=== PATIENT | female | born 1950 ===

== ENCOUNTER 2019-01-25 08:15 | Inpatient (IN) | payer OTHER ==
[2019-01-25] VITALS (10 sets, daily range): BP systolic 116–151; BP diastolic 55–73
[~2019-01-25] VITALS: Ht 158.8 cm; Wt 90.3 kg
--- NOTE | 2019-01-25 07:26 | Pre-Procedure Note/Attestation ---
Pre-Procedure Note/Attestation Complete Prior to Procedure Planned Procedure: bilateral Procedure Narrative: Posterior lumbar decompression bilaterally L4-5 and right L5-S1 and, interspinous fusion with titanium graft, posterolateral arthrodesis at L4-5, use of allograft, autograft and iliac crest bone marrow aspirate. Attestation I attest that I discussed the nature of the procedure; its benefits; risks and complications; and alternatives (and the risks and benefits of such alternatives ), prior to the procedure, with the patient (or the patient's legal route sales representative). I attest that, if there was a reasonable possibility of needing a blood transfusion, the patient (or the patient's legal route sales representative) was given the [place] Department of Health Services standardized written summary, pursuant to the Renny Ousmane Blood Safety Act ([place] Health and Safety Code # 1645, as amended). I attest that I re-evaluated the patient just prior to the surgery and that there has been no change in the patient's H&P, except as documented below: Santino Mcdonnell MD Jan 25, 2019 07:26
[~2019-01-25 08:15] MED LIST: CARVEDILOL6.25 MG ORAL; HYDROCODON-ACE1 EA15 ORAL; IBUPROFEN600 MG ORAL; Pantoprazole Inj IVP ONE; TYLENOL ARTHRITIS PO; Vancomycin 1gm/D5W 275ml IVPB ONE
[2019-01-25] MEDS ORDERED: Midazolam 2mg/2ml Inj ONE (11:15)
[2019-01-25] MEDS ORDERED: fentaNYL 100 mcg/2 mL IV ONE (11:15)
[2019-01-25] MEDS ORDERED: Pantoprazole Inj ONE (11:25)
[2019-01-25] MEDS ORDERED: Thrombin 5000 units TOPIC ONE (12:33)
[2019-01-25] MEDS ORDERED: Thrombin 5000 units spray kit TOPIC ONE (12:33)
[2019-01-25] MEDS ORDERED: Heparin 1000 units/ml 1ml Vial ONE (12:33)
[2019-01-25] MEDS ORDERED: Bacitracin 50000 Units Vial ONE (12:34)
[2019-01-25] MEDS ORDERED: Bupivacaine w/Epi 0.5% 30ml Vial INJ ONE (12:34)
[2019-01-25] MEDS ORDERED: Gelfoam Absorbable 1gm powder pkt TOPIC ONE (12:34)
[2019-01-25] MEDS ORDERED: Gelfoam Size TOPIC ONE (12:34)
[2019-01-25] MEDS ORDERED: NS Irrig 1000ml ONE (13:00)
[2019-01-25] MEDS ORDERED: Sterile Water Irrig 1000ml IRRIG ONE (13:00)
[2019-01-25] MEDS ORDERED: LR 1000ml ONE (13:00)
[2019-01-25] MEDS ORDERED: Neostigmine 1mg/ml 10ml Inj ONE (13:00)
[2019-01-25] MEDS ORDERED: Glycopyrrolate 0.2mg/ml 1ml Vial ONE (13:51)
[2019-01-25] MEDS ORDERED: Ketorolac 30mg Inj ONE (13:51)
[2019-01-25] MEDS ORDERED: Sodium Chloride 10ml vial INJ ONE ×2 (13:51→14:07)
[2019-01-25] MEDS ORDERED: Morphine Sulfate 10mg/ml Inj ONE (13:51)
[2019-01-25] MEDS ORDERED: ePHEDrine 50mg/ml Inj ONE (14:07)
[2019-01-25] MEDS ORDERED: Zemuron 50mg/5ml Inj IV ONE (14:12)
--- NOTE | 2019-01-25 14:16 | Anethesia Preoperative Eval ---
Anesthesia Pre-op PMH/ROS General Date of Evaluation: Jan 25, 2019 Time of Evaluation: 12:50 Anesthesiologist: Clyde ASA Score: ASA 2 Mallampati Score Class I : Soft palate, uvula, fauces, pillars visible Class II: Soft palate, uvula, fauces visible Class III: Soft palate, base of uvula visible Class IV: Only hard plate visible Mallampati Classification: Class II Surgeon: Kecia Diagnosis: Lumbar radiculopathy Surgical Procedure: L5-S1 laminotomy with decompression and interbody fusion Anesthesia History: none Family History: no anesthesia problems Allergies: Coded Allergies: No Known Allergies (Unverified , 01/23/19) Medications: see eMAR Patient NPO?: Yes NPO Date: Jan 24, 2019 NPO Time: 2358 Past Medical History Cardiovascular: Denies: HTN, CAD, [place], valve dz, arrhythmia, other Pulmonary: Reports: ASHLEY; Denies: asthma, COPD, other Gastrointestinal/Genitourinary: Reports: GERD; Denies: CRI, ESRD, other Neurologic/Psychiatric: Reports: depression/anxiety, other - chronic pain; Denies: dementia, CVA, TIA Endocrine: Reports: other - hyperCAmia; Denies: DM, hypothyroidism, steroids HEENT: Denies: cataract (L), cataract (R), glaucoma, KLAMATH (L), KLAMATH (R), other Hematology/Immune: Denies: anemia, DVT, bleeding disorder, other Musculoskeletal/Integumentary: Denies: OA, RA, DJD, DDD, edema, other Other: obesity PMH Narrative: as above PSxH Narrative: partial thyroidectomy, breasts reduction, cosmetics Anesthesia Pre-op Phys. Exam Physician Exam Last Vital Signs Date Time Temp Pulse Resp B/P (MAP) Pulse Ox O2 Delivery O2 Flow Rate FiO2 01/25/19 10:11 Room Air 01/25/19 10:07 97.8 52 18 151/67 (95) 97 Constitutional: NAD Neurologic: CN 2-12 intact Cardiovascular: RRR, no M/R/G Respiratory: CTA Gastrointestinal: other - obesity Airway Exam Mallampati Score: Class II MO: limited Neck: short ROM: limited Teeth: intact Dentures: no upper, no lower Anesthesia Pre-op A/P Labs see chart Studies Pre-op Studies: EKG - NSR, CXR - WNL Risk Assessment & Plan Assessment: ASA 2 Plan: GA with ETT prone position neuromonitoring Status Change Before Surgery: No Pre-Antibiotics Drug: Vancomycin 1gr. Given Within 1 Hr of Incision: Yes Time Given: 13:28 Baldemar Tang MD Jan 25, 2019 14:16
[2019-01-25] MEDS ORDERED: LR 1000ml 1,000 ML IVLG SCH (14:20)
[2019-01-25] MEDS ORDERED: Ketorolac 30mg Inj IV PRN (14:30)
[2019-01-25] MEDS ORDERED: Midazolam 2mg/2ml Inj IVP PRN (14:30)
[2019-01-25] MEDS ORDERED: Acetaminophen (Non formulary) 100 ML IV ONE (14:30)
[2019-01-25] MEDS ORDERED: DiphenhydrAMINE 50mg/ml Inj IVP PRN (14:30)
--- NOTE | 2019-01-25 16:30 | Immediate Post-Op Evaluation ---
Immediate Post-Op Evalulation Immediate Post-Op Evalulation Procedure: L4-L5-S1 laminotomy with decompression and interbody fusion Date of Evaluation: Jan 25, 2019 Time of Evaluation: 16:29 IV Fluids: 1000 Blood Products: none Estimated Blood Loss: 50 Urinary Output: 300 Blood Pressure Systolic: 136 Blood Pressure Diastolic: 78 Pulse Rate: 64 Respiratory Rate: 20 O2 Sat by Pulse Oximetry: 99 Temperature (Fahrenheit): 98.3 Pain Score (1-10): 1 Nausea: No Vomiting: No Complications none Patient Status: reacts, patent, extubated, none Hydration Status: adequate Baldemar Tang MD Jan 25, 2019 16:30
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
[2019-01-25] MEDS ORDERED: NS w/KCl 20mEq 1,000 ML IV SCH (16:39)
[2019-01-25] MEDS ORDERED: HYDROcodone/Acetamin 7.5/325 tab ORAL PRN (16:45)
[2019-01-25] MEDS ORDERED: Milk of Magnesia 30ml Ud ORAL PRN (16:45)
[2019-01-25] MEDS: Hydromorphone 0.5mg/0.5ml inj IVP PRN ×2 (16:46→21:52)
--- NOTE | 2019-01-25 16:48 | Diagnostic Imaging Report ---
INDICATION: Pain, intraoperative TECHNIQUE: Intraoperative imaging Fluoroscopy time: 10.1 seconds Total dose: 6 0.31808 mGym2 Total number of images: 4 COMPARISON: None FINDINGS: Intraoperative images demonstrate a paper clips superimposed over what are presumably L5 and S1. Subsequent image demonstrates a surgical tool posterior to L5-S1. Subsequent images demonstrate fusion hardware bridging the L4 and L5 spinous processes. IMPRESSION: Intraoperative imaging, as described
--- NOTE | 2019-01-25 16:53 | General Progress Note ---
Progress Note Progress Note S/ Incisional pain under control. No leg pain O/ vs: Last 24 Hour Vital Signs Date Time Temp Pulse Resp B/P (MAP) Pulse Ox O2 Delivery O2 Flow Rate FiO2 01/25/19 16:30 64 20 99 01/25/19 16:25 98.3 65 16 147/73 100 Simple Mask 6.0 01/25/19 10:11 Room Air 01/25/19 10:07 97.8 52 18 151/67 (95) 97 Alert oriented Moves all extremities well Lower extremities 5/5 bilaterally Dressing dry doing well admit to the floor lumbar brace. DVT prevention. ankle foot exercise and early ambulation check BMP in am. Santino Mcdonnell MD Jan 25, 2019 16:53
--- NOTE | 2019-01-25 17:35 | NUR ---
Received report from ELIZABET Darden from OR. Pt in bed, resting, respiration unlabored, NC 2L, friend at bedside, call light within reach, bed in lowest position.
--- NOTE | 2019-01-25 17:46 | 48 Hour Post Anesthesia Eval ---
Post Anesthesia Evaluation Procedure: L4-L5-S1 laminotomy with decompression and interbody fusion Date of Evaluation: Jan 25, 2019 Time of Evaluation: 18:41 Blood Pressure Systolic: 131 0: 64 Pulse Rate: 62 Respiratory Rate: 20 Temperature (Fahrenheit): 98.3 O2 Sat by Pulse Oximetry: 100 Airway: patent Nausea: No Vomiting: No Pain Intensity: 3 Hydration Status: adequate Cardiopulmonary Status: Stable Mental Status/LOC: patient returned to baseline Follow-up Care/Observations: 0 Post-Anesthesia Complications: 0 Follow-up care needed: N/A Roberto Mcneil MD Jan 25, 2019 17:46
[2019-01-25] MEDS ORDERED: Docusate 100mg cap ORAL SCH (18:00)
--- NOTE | 2019-01-25 18:35 | NUR ---
NURSE NOTES: Called Pharmacy regarding IV fluids and Colace order due for 1800 no in pyxis.
[2019-01-25] MEDS: Docusate Sod/Senna tab ORAL SCH (19:28)
--- NOTE | 2019-01-25 19:32 | NUR ---
HAND-OFF: Report given to ELIZABET Razo.
[2019-01-25] MEDS: NS w/KCl 20mEq 1,000 ML IV SCH (19:52)
[2019-01-25] MEDS: Carvedilol 12.5mg tab ORAL SCH (21:00)
[2019-01-25] MEDS: Vancomycin 1 GM in D5W 275 ML IVPB SCH (21:38)
--- NOTE | 2019-01-25 22:56 | Consultation ---
History of Present Illness General Date patient seen: Jan 25, 2019 Time patient seen: 22:53 Present Illness Allergies: Coded Allergies: No Known Allergies (Unverified , 01/23/19) Medication History Scheduled Carvedilol* (Carvedilol*), 6.25 MG ORAL EVERY 12 HOURS, (Reported) Scheduled PRN Hydrocodone/Acetaminophen 5-325* (Hydrocodone/Acetaminophen 5-325*), 1 TAB ORAL Q6H PRN for For Pain, (Reported) Patient History Healthcare decision maker ROSIO HERNANDEZ(SON) Resuscitation status Full Code Advanced Directive on File No Review of Systems Constitutional: Reports: no symptoms Eye: Reports: no symptoms ENT: Reports: no symptoms ROS Narrative has some siena other luna feekling ok Physical Exam General Appearance: WD/WN HEENT: normocephalic Respiratory/Chest: lungs clear Cardiovascular/Chest: normal rate, regular rhythm, no JVD Abdomen: non tender, soft Extremities: other - bending both leg able to dorsiflex both feet and has good strength. Last 24 Hour Vital Signs Date Time Temp Pulse Resp B/P (MAP) Pulse Ox O2 Delivery O2 Flow Rate FiO2 01/25/19 21:00 64 126/55 01/25/19 20:55 98.1 64 17 126/55 (78) 01/25/19 19:33 Room Air 01/25/19 18:39 97.9 67 14 130/61 (84) 97 01/25/19 17:46 62 20 100 01/25/19 17:30 98.3 62 19 116/64 100 Nasal Cannula 2.0 01/25/19 17:16 98.3 01/25/19 17:16 98.3 01/25/19 17:15 61 20 117/65 100 Nasal Cannula 2.0 01/25/19 17:00 64 19 122/63 100 Nasal Cannula 2.0 01/25/19 16:45 62 18 145/72 100 Simple Mask 6.0 01/25/19 16:35 61 17 139/66 100 Simple Mask 6.0 01/25/19 16:30 62 18 137/73 100 Simple Mask 6.0 01/25/19 16:30 64 20 99 01/25/19 16:25 98.3 65 16 147/73 100 Simple Mask 6.0 01/25/19 16:00 98.3 01/25/19 10:11 Room Air 01/25/19 10:07 97.8 52 18 151/67 (95) 97 Height (Feet): 5 Height (Inches): 2.50 Weight (Pounds): 199 Medications Current Medications Medications (Trade) Dose Ordered Sig/Jose Miguel Route PRN Reason Start Time Stop Time Status Last Admin Dose Admin Acetaminophen (Tylenol) 650 mg Q6H PRN ORAL Mild Pain (Pain Scale 1-3) 01/25/19 16:45 02/24/19 16:44 Acetaminophen/ Hydrocodone Bitart (Topaz 7.5/325) 1 tab Q3H PRN ORAL pain score 4-6 01/25/19 16:45 02/01/19 16:44 Acetaminophen/ Hydrocodone Bitart (Topaz 7.5/325) 2 tab Q3H PRN ORAL pain scale 7-10 01/25/19 16:45 02/01/19 16:44 Carvedilol (Coreg) 12.5 mg EVERY 12 HOURS ORAL 01/25/19 21:00 02/24/19 20:59 Diphenhydramine HCl (Benadryl) 25 mg Q15M PRN IVP Itching 01/25/19 14:30 01/25/19 23:30 Hydromorphone HCl (Dilaudid) 1 mg Q2H PRN IVP Breakthrough Pain 01/25/19 16:45 02/01/19 16:44 Magnesium Hydroxide (Mom) 30 ml QIDPRN PRN ORAL Constipation 01/25/19 16:45 02/24/19 16:44 Ondansetron HCl (Zofran) 4 mg Q1H PRN IVP Nausea & Vomiting 01/25/19 14:30 01/25/19 23:30 Senna/Docusate Sodium (Anai-Colace) 1 tab TWICE A DAY ORAL 01/25/19 18:00 02/24/19 17:59 01/25/19 19:28 Sodium Chloride 1,000 ml @ 100 mls/hr Q10H IV 01/25/19 19:00 02/24/19 18:59 01/25/19 19:52 Temazepam (Restoril) 15 mg HSPRN PRN ORAL Insomnia 01/25/19 16:45 02/01/19 16:44 Vancomycin HCl 1 gm/Dextrose 275 ml @ 183.3 mls/ hr EVERY 12 HOURS IVPB 01/25/19 21:00 01/26/19 10:31 01/25/19 21:38 Assessment/Plan Status Narrative s/p complex spine surgery histoyro f hypercalcemia has been cleared byu the endocrine perop. Assessment/Plan Preiooperative antibiotic prophyalxis post op DVT prophyalxis with keo hose stocking and SCD PT OT paincontrol doing well Ambrose Cruz MD Jan 25, 2019 22:56
--- NOTE | 2019-01-25 23:30 | NUR ---
NURSE NOTES: Received report from ELIZABET Iglesias. Patient alert, oriented. Just vomited clear liquid approx 150 cc, denies nausea now, states feels better after vomiting. Back dressing intact and dry. Icepack on. IV intact and patent. SCD on bilat. Coelho catheter draining well. Call light within reach, bed in low position, side rails up x2. Will continue to monitor
--- NOTE | 2019-01-25 23:42 | NUR ---
NURSE NOTES: pt A/Ox4, move all extremity, VSS, no resp distress, dressing dry and intact. oriented to room and unit, answer to all questions, continue plan of care.
--- NOTE | 2019-01-25 23:52 | NUR ---
HAND-OFF: Report given to Jace MCNEAL.
[2019-01-26] VITALS: BP 117/64
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
[2019-01-26] MEDS: HYDROmorphone 1mg/ml Carpuject IVP PRN ×2 (00:36→05:30)
[2019-01-26 04:00] VITALS: BP 129/66
[2019-01-26] MEDS: NS w/KCl 20mEq 1,000 ML IV SCH (05:31)
[2019-01-26] MEDS: HYDROcodone/Acetamin 7.5/325 tab ORAL PRN ×3 (06:34→14:14)
[2019-01-26 06:50] LABS: ANION GAP 3 mmol/L (5-15); BLOOD UREA NITROGEN 17 mg/dL (7-18); CALCIUM 9.1 MG/DL (8.5-10.1); CARBON DIOXIDE 30 MMOL/L (21-32); CHLORIDE 107 MMOL/L (98-107); CREATININE 0.6 MG/DL (0.55-1.30); POTASSIUM 4.3 MMOL/L (3.5-5.1); SODIUM 140 MMOL/L (136-145)
--- NOTE | 2019-01-26 07:34 | NUR ---
HAND-OFF: Report given to RN. Ambrose Pt in stable condition. Addendum: 01/26/19 at 0736 by HITESH SALDANA RN Report given to RN. Irene Pt in stable condition.
[2019-01-26 08:00] VITALS: BP 133/62
--- NOTE | 2019-01-26 08:00 | NUR ---
NURSE NOTES: Received report from Jcae Regan pt a/a/o x4 laying in bed with no signs of distress or other issues at this time. Coelho cath in place draining to gravity with dark yellow urine. IV on the left hand gauge #18 running NS+20mEq@100ml.hr. surgical dressing dry and intact. call light within reach. bed in lowest position, side rales up x2. pt's friend at bed side. Plan: to ambulate with PT, remove Coelho cath and dc home after post void. I will f/u as needed.
[2019-01-26] MEDS: Vancomycin 1 GM in D5W 275 ML IVPB SCH (09:40)
[2019-01-26] MEDS: Docusate Sod/Senna tab ORAL SCH (09:41)
[2019-01-26] MEDS: Carvedilol 12.5mg tab ORAL SCH ×2 (09:41→09:45)
--- NOTE | 2019-01-26 11:27 | NUR ---
NURSE NOTES: RN removed Coelho cath as ordered. pt was able to tolerated removal without any signs of distress or other issues at this time. RN will monitor for post void. - pt was able to walk around the unit with physical therapist and the use of the walker. I will f/u as needed.
[2019-01-26 12:00] VITALS: BP 152/70
--- NOTE | 2019-01-26 12:30 | NUR ---
NURSE NOTES: Called plant hr manager to f/u with pt's lumbar brace. per Kelsie HERNANDEZ, brace will be deliver at 14:00. - pt was able to void 300ml after Coelho was removed with no issues. I will f/u as needed.
--- NOTE | 2019-01-26 12:31 | NUR ---
CASE MANAGEMENT: REVIEW 68/F DIRECT ADMIT FROM HOME FOR PLANNED PROCEDURE CC: PAIN SI: LUMBAR RADICULOPATHY L4-L5-S1 LAMINOTOMY WITH DECOMPRESSION AND INTERBODY FUSION 01/25 T 98.3 HR 62 RR 19 BP 116/64 SAT 100% NC/2L A GAP 3 GLUCOSE 110 IS: LACTATED RINGER'S ZEMURON IV X1 NS IVF BOLUS X1 VERSED IV X1 ACETAMINOPHEN IV X1 PATIENT ADMITTED TO MED/SURG 01/25/2019 DCP: PATIENT IS FROM HOME
--- NOTE | 2019-01-26 12:41 | NUR ---
CASE MANAGEMENT:DCPNOTE PER MD ORDER LUMBAR BRACE DELIVERY ARRANGED: [facility] [phone] ETA FOR DELIVERY 14:00 01/26/19
--- NOTE | 2019-01-26 14:02 | General Progress Note ---
Progress Note Progress Note S/ Ambulated. No leg pain. Voided O/ VS: Last 24 Hour Vital Signs Date Time Temp Pulse Resp B/P (MAP) Pulse Ox O2 Delivery O2 Flow Rate FiO2 01/26/19 12:00 98.4 54 18 152/70 (97) 98 01/26/19 10:23 98.8 01/26/19 09:00 Room Air 01/26/19 08:00 98.4 62 16 133/62 (85) 95 01/26/19 04:00 98.8 64 16 129/66 (87) 98 01/26/19 00:00 98.5 62 19 117/64 (81) 96 01/25/19 21:00 64 126/55 01/25/19 20:55 98.1 64 17 126/55 (78) 01/25/19 19:33 Room Air 01/25/19 18:39 97.9 67 14 130/61 (84) 97 01/25/19 17:46 62 20 100 01/25/19 17:30 98.3 62 19 116/64 100 Nasal Cannula 2.0 01/25/19 17:16 98.3 01/25/19 17:16 98.3 01/25/19 17:15 61 20 117/65 100 Nasal Cannula 2.0 01/25/19 17:00 64 19 122/63 100 Nasal Cannula 2.0 01/25/19 16:45 62 18 145/72 100 Simple Mask 6.0 01/25/19 16:35 61 17 139/66 100 Simple Mask 6.0 01/25/19 16:30 62 18 137/73 100 Simple Mask 6.0 01/25/19 16:30 64 20 99 01/25/19 16:25 98.3 65 16 147/73 100 Simple Mask 6.0 01/25/19 16:00 98.3 on exam: Moves all extremities well. Incision is clean and dry and flat Labs Laboratory Tests Test 01/26/19 06:05 Sodium Level 140 MMOL/L (136-145) Potassium Level 4.3 MMOL/L (3.5-5.1) Chloride Level 107 MMOL/L (98-107) Carbon Dioxide Level 30 MMOL/L (21-32) Anion Gap 3 mmol/L (5-15) L Blood Urea Nitrogen 17 mg/dL (7-18) Creatinine 0.6 MG/DL (0.55-1.30) Estimat Glomerular Filtration Rate > 60 mL/min (>60) Glucose Level 110 MG/DL (74-106) H Calcium Level 9.1 MG/DL (8.5-10.1) Magnesium Level 1.9 MG/DL (1.8-2.4) doing well brace at bedside. d/c planning Santino Mcdonnell MD Jan 26, 2019 14:02
[2019-01-26] MEDS ORDERED: HYDROCODON-ACE1 EA13 ORAL (14:47)
[2019-01-26] MEDS ORDERED: GABAPENTIN300 MG/61 ORAL (14:48)
--- NOTE | 2019-01-26 15:07 | NUR ---
PT Note PT madisyn completed, treatment initiated. Patient is very receptive to instructions. Patient needs PT services to increase her muscle strength and instruct on proper body mechanics to improve her safety in mobility and gait. Addendum: 01/26/19 at 1508 by DEONTE FLORES PT Amended: Links added.
--- NOTE | 2019-01-26 15:45 | NUR ---
NURSE NOTES: Received order to dc pt home. discharge instructions and belongings given to patient and pt's friend. also given RX for [place] 10/325 Q6H PO PRN #20, pt state that she will go to regular pharmacy to fill out prescription. IV removed prior to d/c. pt left the floor via w/c with no signs of distress or other issues at this time. I will f/u as needed.
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
== END 2019-01-26 15:40 | disposition home or self-care (01) | DRG 460 ==
LOC: SDSOVERFLO 08:33 → 3E 17:40
PROC: 07DR3ZZ Extraction of Iliac Bone Marrow, Percutaneous Approach (ICD-10-PCS; principal; 2019-01-25 11:30)
PROC: 01NB0ZZ Release Lumbar Nerve, Open Approach (ICD-10-PCS; principal; 2019-01-25 11:30)
PROC: 0SG00AJ Fusion of Lumbar Vertebral Joint with Interbody Fusion Device, Posterior Approach, Anterior Column, Open Approach (ICD-10-PCS; principal; 2019-01-25 11:30)
PROC: 00NY0ZZ Release Lumbar Spinal Cord, Open Approach (ICD-10-PCS; principal; 2019-01-25 11:30)
DX: M51.16 Intervertebral disc disorders with radiculopathy, lumbar region (principal); M43.16 Spondylolisthesis, lumbar region; M48.062 Spinal stenosis, lumbar region with neurogenic claudication; M48.07 Spinal stenosis, lumbosacral region; V89.2XXS Person injured in unspecified motor-vehicle accident, traffic, sequela; R26.2 Difficulty in walking, not elsewhere classified
CPT/HCPCS: 36415; 72020; 76000; 80048; 83735; 86850; 86900; 86901; 87081; 94003; 94150; C9399; J2250; J2710